=== PATIENT | male | born 1965 | race Caucasian/White ===

== ENCOUNTER 2016-07-01 19:57 | Emergency (ER) | payer OTHER ==
--- NOTE | 2016-07-01 23:22 | ED ORDER SUMMARY ---
..... Patient: JAYLON BOOKER OrderSheet [facility] VisitID: [id number] [place] [address] 51y, M Registration Date/Time: 07/01/2016 ORDER SHEET Weight: 97.5 kg (stated) Allergies: No Known Drug Allergy GENERAL ORDERS: US Scrotum/Testicular Urgent (21:37 07/01/2016 Chery BLACKWELL) (Ack 21:44 TBergley) (23:22 [email or web address]) UA-Culture if indicated Urgent (22:05 07/01/2016 Chery BLACKWELL) (Ack 22:29 [email or web address]) (22:29 DBeyer R.N.) MEDICATION ORDERS: Ibuprofen PO 800 mg (NOW) (22:25 07/01/2016 Chery BLACKWELL) (22:33 DBeyer R.N.) Hydrocodone-APAP PO 5/325 mg (NOW, HIGH ALERT MEDICATION) (22:25 07/01/2016 Chery BLACKWELL) (22:33 DBeyer R.N.) Rocephin IM 1 gm (NOW) (23:18 07/01/2016 Chery BLACKWELL) (23:28 DBeyer R.N.) Zithromax PO 500 mg (NOW) (23:19 07/01/2016 Chery BLACKWELL) (23:28 DBeyer R.N.) IV FLUIDS: ORDER SHEET NOTES: [Electronically signed by Juan Jose Mcgrath R.N. (02:59 07/02/2016)] [Electronically signed by Saida España MD (21:27 07/06/2016)] [Electronically locked/signed by Juan Jose Mcgrath R.N. (02:59 07/02/2016)]
--- NOTE | 2016-07-01 23:22 | ED NURSING NOTES ---
Clinical Report - Nurses [facility] [address] [place] [address] 07/01/2016 19:59 Patient: JAYLON BOOKER TRIAGE Triage time 20:30. Acuity: LEVEL 3. Chief Complaint: TESTICULAR PAIN and SCROTAL SWELLING. 20:34. Alert. --20:35 Frank Rivera R.N. 20:29 07/01/16. BP: 142/104. HR: 108. RR: 17. O2 saturation: 99% on room air. Temp: 98.8 F. Pain level now: 02/01. --20:35 Frank Rivera R.N. Weight: 97.5 kg stated. Height/Length: 69 inches Per Patient. BMI: 31.8. --20:32 Frank Rivera R.N. Medications None. --20:32 Frank Rivera R.N. Allergies No Known Drug Allergy. --20:32 Frank Rivera R.N. Medication/allergy information source: the patient. --20:35 Frank Rivera R.N. History Arrived by private vehicle. Historian: patient. Accompanied by friend. Primary physician (None). Onset. (3 days ago). ( Patient reports slipping on the about 3 days ago then later that night he began to get left testicular pain and swelling). 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 PAST MEDICAL HX: Immunizations: up-to-date. SOCIAL HX: Current every day heavy tobacco smoker- 1 pack per day. Occasional alcohol use. No drug use. No infectious disease exposure. ABUSE ASSESSMENT: No report of abuse. FALL RISK ASSESSMENT: Fall risk assessment completed. No fall risk identified. NUTRITIONAL RISK ASSESSMENT: The nutritional risk assessment revealed no deficiencies. FUNCTIONAL ASSESSMENT: Functional assessment: no impairments noted. LEARNING NEEDS ASSESSMENT: The learning needs assessment revealed no barriers. SKIN INTEGRITY ASSESSMENT: Skin integrity risk assessment completed. No skin integrity risk identified. --20:35 Frank Rivera R.N. PROBLEMS: Back Pain. Lumbar Strain. --20:33 Frank Rivera R.N. ADDITIONAL SURGERIES: Fracture Repair. --20:33 Frank Rivera R.N. Interventions ID band on patient. To treatment room. --20:35 Frank Rivera R.N. PHYSICAL ASSESSMENT GENERAL / NEURO / PSYCH: Alert. Oriented X 4. Appears in pain. RESPIRATORY: Respirations not labored. CVS: Capillary refill less than 2 seconds. GI / : Left testicular tenderness with swelling. SKIN: Skin is warm. --20:45 Juan Jose Mcgrath R.N. NURSING PROGRESS NOTES The plan of care for this patient has been created This plan of care was discussed with the patient. Monitoring of patient in place. Patient gowned. Reassurance given. Cottage Attendant provided for the genital exam by the physician. Two patient identifiers checked. Call light placed in reach. Side rails up x 1. Bed placed in lowest position. Patient ready for evaluation- chart flagged. --20:46 Juan Jose Mcgrath R.N. Pulse oximeter placed on patient. --20:46 Juan Jose Mcgrath R.N. 21:13 07/01/16. BP: 164/97. O2 saturation: 94%. --21:13 Juan Jose Mcgrath R.N. 22:29 07/01/16. BP: 153/103. --22:29 Juan Jose Mcgrath R.N. 22:33 07/01/2016 Ibuprofen PO 800 mg given. Allergies verified and confirmed 5 rights. --22:33 Juan Jose Mcgrath R.N. 22:33 07/01/2016 Hydrocodone-APAP (Hydrocodone-Acetaminophen) PO 5/325 mg Tablets 1 tab given. Allergies verified, confirmed 5 rights and sedative warning given to the patient. --22:33 Juan Jose Mcgrath R.N. 23:28 07/01/2016 Zithromax PO 500 mg given. Allergies verified and confirmed 5 rights. --23:28 Juan Jose Mcgrath R.N. 23:28 07/01/2016 Rocephin (CefTRIAXone Sodium) IM 1 gm given. Given in the right anterior lateral thigh. Allergies verified and confirmed 5 rights. --23:28 Juan Jose Mcgrath R.N. DISPOSITION / DISCHARGE 23:37 07/01/16. BP: 127/84. HR: 101. RR: 18. O2 saturation: 98%. Temp: 98.1 F. Pain level now 11/01. --23:37 Juan Jose Mcgrath R.N. 23:37 07/01/16. BP: 127/84. HR: 101. RR: 20. O2 saturation: 98%. Temp: 97.5 F. Pain level now: 11/01. --23:46 Juan Jose Mcgrath R.N. Departure time: 2336. Condition at departure: improved. No learning barriers present. Discharge instructions provided and reviewed with the patient. Reviewed medication(s) side effects information. Prescription(s) given to the patient. Patient verbalized understanding. Written instructions provided in Korean. The patient was discharged by the physician. He was discharged home. ( pt ambulated on discharge, no sign of reaction to media marketing manager. Pt verbalized understanding of follow up care and medication admin. Pt steady on his feet). --23:47 Juan Jose Mcgrath R.N. Locked/Released at 07/02/2016 2:59 by Juan Jose Mcgrath R.N.
--- NOTE | 2016-07-01 23:22 | ED NURSING NOTES ---
Clinical Report - Nurses [facility] [address] [place] [address] 07/01/2016 19:59 Patient: JAYLON BOOKER TRIAGE Triage time 20:30. Acuity: LEVEL 3. Chief Complaint: TESTICULAR PAIN and SCROTAL SWELLING. 20:34. Alert. --20:35 Frank Rivera R.N. 20:29 07/01/16. BP: 142/104. HR: 108. RR: 17. O2 saturation: 99% on room air. Temp: 98.8 F. Pain level now: 02/01. --20:35 Frank Rivera R.N. Weight: 97.5 kg stated. Height/Length: 69 inches Per Patient. BMI: 31.8. --20:32 Frank Rivera R.N. Medications None. --20:32 Frank Rivera R.N. Allergies No Known Drug Allergy. --20:32 Frank Rivera R.N. Medication/allergy information source: the patient. --20:35 Frank Rivera R.N. History Arrived by private vehicle. Historian: patient. Accompanied by friend. Primary physician (None). Onset. (3 days ago). ( Patient reports slipping on the about 3 days ago then later that night he began to get left testicular pain and swelling). 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 PAST MEDICAL HX: Immunizations: up-to-date. SOCIAL HX: Current every day heavy tobacco smoker- 1 pack per day. Occasional alcohol use. No drug use. No infectious disease exposure. ABUSE ASSESSMENT: No report of abuse. FALL RISK ASSESSMENT: Fall risk assessment completed. No fall risk identified. NUTRITIONAL RISK ASSESSMENT: The nutritional risk assessment revealed no deficiencies. FUNCTIONAL ASSESSMENT: Functional assessment: no impairments noted. LEARNING NEEDS ASSESSMENT: The learning needs assessment revealed no barriers. SKIN INTEGRITY ASSESSMENT: Skin integrity risk assessment completed. No skin integrity risk identified. --20:35 Frank Rivera R.N. PROBLEMS: Back Pain. Lumbar Strain. --20:33 Frank Rivera R.N. ADDITIONAL SURGERIES: Fracture Repair. --20:33 Frank Rivera R.N. Interventions ID band on patient. To treatment room. --20:35 Frank Rivera R.N. PHYSICAL ASSESSMENT GENERAL / NEURO / PSYCH: Alert. Oriented X 4. Appears in pain. RESPIRATORY: Respirations not labored. CVS: Capillary refill less than 2 seconds. GI / : Left testicular tenderness with swelling. SKIN: Skin is warm. --20:45 Juan Jose Mcgrath R.N. NURSING PROGRESS NOTES The plan of care for this patient has been created This plan of care was discussed with the patient. Monitoring of patient in place. Patient gowned. Reassurance given. Child Life Specialist provided for the genital exam by the physician. Two patient identifiers checked. Call light placed in reach. Side rails up x 1. Bed placed in lowest position. Patient ready for evaluation- chart flagged. --20:46 Juan Jose Mcgrath R.N. Pulse oximeter placed on patient. --20:46 Juan Jose Mcgrath R.N. 21:13 07/01/16. BP: 164/97. O2 saturation: 94%. --21:13 Juan Jose Mcgrath R.N. 22:29 07/01/16. BP: 153/103. --22:29 Juan Jose Mcgrath R.N. 22:33 07/01/2016 Ibuprofen PO 800 mg given. Allergies verified and confirmed 5 rights. --22:33 Juan Jose Mcgrath R.N. 22:33 07/01/2016 Hydrocodone-APAP (Hydrocodone-Acetaminophen) PO 5/325 mg Tablets 1 tab given. Allergies verified, confirmed 5 rights and sedative warning given to the patient. --22:33 Juan Jose Mcgrath R.N. 23:28 07/01/2016 Zithromax PO 500 mg given. Allergies verified and confirmed 5 rights. --23:28 Juan Jose Mcgrath R.N. 23:28 07/01/2016 Rocephin (CefTRIAXone Sodium) IM 1 gm given. Given in the right anterior lateral thigh. Allergies verified and confirmed 5 rights. --23:28 Juan Jose Mcgrath R.N. DISPOSITION / DISCHARGE 23:37 07/01/16. BP: 127/84. HR: 101. RR: 18. O2 saturation: 98%. Temp: 98.1 F. Pain level now 11/01. --23:37 Juan Jose Mcgrath R.N. 23:37 07/01/16. BP: 127/84. HR: 101. RR: 20. O2 saturation: 98%. Temp: 97.5 F. Pain level now: 11/01. --23:46 Juan Jose Mcgrath R.N. Departure time: 2336. Condition at departure: improved. No learning barriers present. Discharge instructions provided and reviewed with the patient. Reviewed medication(s) side effects information. Prescription(s) given to the patient. Patient verbalized understanding. Written instructions provided in Italian. The patient was discharged by the physician. He was discharged home. ( pt ambulated on discharge, no sign of reaction to industrial paramedic. Pt verbalized understanding of follow up care and medication admin. Pt steady on his feet). --23:47 Juan Jose Mcgrath R.N. Locked/Released at 07/02/2016 2:59 by Juan Jose Mcgrath R.N.
--- NOTE | 2016-07-01 23:22 | ED ORDER SUMMARY ---
..... Patient: JAYLON BOOKER OrderSheet [facility] VisitID: [id number] [place] [address] 51y, M Registration Date/Time: 07/01/2016 ORDER SHEET Weight: 97.5 kg (stated) Allergies: No Known Drug Allergy GENERAL ORDERS: US Scrotum/Testicular Urgent (21:37 07/01/2016 Chery BLACKWELL) (Ack 21:44 TBergley) (23:22 [email or web address] [facility] Business Process Analyst) UA-Culture if indicated Urgent (22:05 07/01/2016 Chery BLACKWELL) (Ack 22:29 [email or web address] [facility] Business Process Analyst) (22:29 DBeyer R.N.) MEDICATION ORDERS: Ibuprofen PO 800 mg (NOW) (22:25 07/01/2016 Chery BLACKWELL) (22:33 DBeyer R.N.) Hydrocodone-APAP PO 5/325 mg (NOW, HIGH ALERT MEDICATION) (22:25 07/01/2016 Chery BLACKWELL) (22:33 DBeyer R.N.) Rocephin IM 1 gm (NOW) (23:18 07/01/2016 Chery BLACKWELL) (23:28 DBeyer R.N.) Zithromax PO 500 mg (NOW) (23:19 07/01/2016 Chery BLACKWELL) (23:28 DBeyer R.N.) IV FLUIDS: ORDER SHEET NOTES: [Electronically signed by Juan Jose Mcgrath R.N. (02:59 07/02/2016)] [Electronically signed by Saida España MD (21:27 07/06/2016)] [Electronically locked/signed by Juan Jose Mcgrath R.N. (02:59 07/02/2016)]
--- NOTE | 2016-07-01 23:22 | ED CLINICAL REPORT ---
Clinical Report - Physicians/Mid Levels [facility] [address] [place] [address] 07/01/2016 19:59 Patient: JAYLON BOOKER Time Seen: 21:37. Arrived- By private vehicle. Historian- patient. HISTORY OF PRESENT ILLNESS Chief Complaint: LEFT TESTICULAR PAIN. This started about 2 days ago and is still present and now worse. The problem is described as moderate. No penile discharge, discomfort with urination, urinary frequency, genital lesion or urgency of urination. No flank pain, inguinal swelling or problem with the foreskin. He has had testicular pain. Able to void. Not voiding only small amounts. Sexual history is noncontributory. He has not had an exposure to a sexually transmitted disease. (PT states that 3 days ago, he was walking and slipped. He was able to catch himself on his feet, but felt that his L testicle pinched a little between his legs. Pt states it wasn't very painful at the time, but that he noticed pain and swelling the next day.). Similar symptoms previously: Once. Recent medical care: Not recently seen/assessed. REVIEW OF SYSTEMS No fever, chills, flank pain, hematuria or abdominal pain. No vomiting, diarrhea, black stools, bloody stools or headache. No sore throat, blurred vision, chest pain, difficulty breathing or cough. No joint pain, skin rash or back pain. All systems otherwise negative, except as recorded above. PAST HISTORY Problems: Back Pain. Lumbar Strain. Additional Surgeries: Fracture Repair. Medications: None. Allergies: No Known Drug Allergy. SOCIAL HISTORY Smoker- current status unknown. Occasional alcohol use. No drug use. ADDITIONAL NOTES The nursing notes have been reviewed. PHYSICAL EXAM Vital Signs: 07/01/2016 20:29 BP: 142/104. HR: 108. RR: 17. O2 saturation: 99%. Temp: 98.8 F. Pain level now: 8/10. Have been reviewed. Appearance: Alert. Oriented X3. No acute distress. ENT: Normal external inspection. Neck: Neck supple. CVS: Heart sounds normal. Respiratory: No respiratory distress. Breath sounds normal. Abdomen: Soft and nontender. No mass. Back: Normal external inspection. No CVA tenderness. : Moderate left-sided scrotal swelling with tenderness (L testicle). No induration, erythema, fluctuance or ulceration. (PT declines penile exam, and keeps his penis covered during the exam.). Skin: Skin warm and dry. Normal skin color. No rash. Normal skin turgor. Extremities: Extremities exhibit normal ROM. No lower extremity edema. Neuro: Oriented X 3. No motor deficit. No sensory deficit. LABS, X-RAYS, AND EKG Scrotal Sonogram: Arterial flow normal bilaterally. Venous flow normal bilaterally. Left epididymis enlarged. Hydrocele present. The exam was performed by a metallurgical technician. The study was interpreted by the radiologist and discussed with the radiologist. Prior studies were not available for comparison. Laboratory Tests: UA-Culture if indicated: (GLADIS: 07/01/2016 22:16) ( MsgRcvd 07/01/2016 22:31) Final results Test Result Flag Units (Reference) URINE COLOR YELLOW URINE APPEARANCE CLEAR URINE GLUCOSE NEGATIVE (NEGATIVE) URINE BILIRUBIN NEGATIVE (NEGATIVE) URINE KETONE NEGATIVE (NEGATIVE) URINE SPECIFIC GRAVITY 1.020 (1.010-1.030) URINE PH 5.5 (5.0-8.0) URINE PROTEIN 1+ (NEGATIVE) URINE UROBILINOGEN 0.2 EU/dL (0.2-1.0) URINE NITRITE POSITIVE (NEGATIVE) URINE BLOOD 3+ (NEGATIVE) URINE LEUK ESTERASE POSITIVE (NEGATIVE) URINE RBC 1-3 rbc/hpf (0-1) URINE WBC 15-25 wbc/hpf (0-1) URINE EPITHELIAL CELLS 0-1 EPI/hpf (0-5) URINE BACTERIA MANY (4+) (NONE SEEN) URINE COMMENT CULTURE INDICATED URINE CULTURES ARE SET-UP BASED ON THE FOLLOWING CRITERIA:POSITIVE NITRITEPOSITIVE LEUKOCYTE ESTERASEGREATER THAN 10 WHITE BLOOD CELLSMODERATE (2+) OR GREATER BACTERIA . Pulse Oximetry: 07/01/2016 20:29 O2 saturation: 99%. (FIO2 - room air). Interpretation: normal. PROGRESS AND PROCEDURES Course of Care: Pt requested oral medication only, and was given doses of ibuprofen and hydrocodone. He was worked up with a UA and US, both of which were positive. He was given Rocephin and Zithromax, and sent with prescriptions for both. Patient counseled in person regarding the patient's stable condition, test results, diagnosis and need for follow-up. Concerns were addressed. Old medical records reviewed. Disposition: Discharged. Condition: stable and improved. CLINICAL IMPRESSION Acute urinary tract infection with cystitis. Left epididymitis INSTRUCTIONS Do not work (Sunday and Sunday, 07/03-). Drink plenty of fluids. Warnings: GENERAL WARNINGS: Return or contact your physician immediately if your condition worsens or changes unexpectedly, if not improving as expected, or if other problems arise. Prescription Medications: Hydrocodone/APAP 5mg / 325mg: take 1-2 orally every 4 hours as needed for pain. Dispense fifteen (15). No refill. Septra DS 800 mg / 160 mg: take 1 tablet orally every 12 hours for 7 days. No refill. Substitution is permissible. Zithromax Z-Ivan: Take according to package instructions 2 orally today, followed by 1 orally every day for the next 4 days. Total course 5 days. No refills. Substitution is permissible. Ibuprofen 800 mg tablets: take 1 tablet orally every 8 hours as needed for pain. Dispense fifteen (15). No refill. Follow-up: Follow up with your doctor in seven days if not better. Understanding of the discharge instructions verbalized by patient. (Electronically signed by Saida España MD 07/06/2016 21:27)
--- NOTE | 2016-07-02 00:28 | DIAGNOSTIC IMAGING REPORT ---
PROCEDURE: US SCROTUM/TESTICLE INDICATION: Left testicle pain x 5 days, initial encounter TECHNIQUE: Cheney scale and color Doppler sonographic images through the scrotum were obtained. COMPARISON: None. FINDINGS: RIGHT TESTICLE: Measures 4.6 x 2.4 x 2.8 cm with normal echo structure and vascularity. 2.4 mm right epididymal cyst. LEFT TESTICLE: Measures 4.3 x 3.5 x 3.5 cm with normal vascularity and echo structure. Mild enlargement of the epididymis demonstrate increased vascularity suggestive of epididymitis. There is also a moderate hydrocele. IMPRESSION: 1. Mildly enlarged left epididymis with hyperemia suggestive of epididymitis 2. Moderate left hydrocele 3. Normal bilateral testicles
--- NOTE | 2016-07-06 21:27 | ED MAR SUMMARY ---
..... Medication Administration Record [facility] [address] [place] [address] Patient: JAYLON BOOKER Visit ID: [id number] 51y, M Weight: 97.5 kg Height/Length: 69 in BMI: 31.8 ALLERGIES: No Known Drug Allergy Given 07/01/2016 Juan Jose Mcgrath R.N. Medication Administered: IBUPROFEN [PO], Dose: 800 mg PO. Medication Ordered: Ibuprofen PO 800 mg (NOW). Given 07/01/2016 Juan Jose Mcgrath R.NMimi Medication Administered: HYDROCODONE-APAP [PO] (HYDROCODONE-ACETAMINOPHEN), Dose: 1 tab 5/325 mg Tablets PO. Medication Ordered: Hydrocodone-APAP PO 5/325 mg (NOW, HIGH ALERT MEDICATION). Given :07/01/2016 Juan Jose Mcgrath R.N. Medication Administered: ROCEPHIN [IM] (CEFTRIAXONE SODIUM), Dose: 1 gm IM. Medication Ordered: Rocephin IM 1 gm (NOW). Given 07/01/2016 Juan Jose Mcgrath RMimiNMimi Medication Administered: ZITHROMAX [PO], Dose: 500 mg PO. Medication Ordered: Zithromax PO 500 mg (NOW).
--- NOTE | 2016-07-06 21:27 | ED MED RECONCILIATION SUMMARY ---
Patient: JAYLON BOOKER Medication Reconciliation Report [facility] VisitID: [id number] [place] [address] 51y, M Registration Date/Time: 07/01/2016 Weight: 97.5 kg Height/Length: 69 in. BMI: 31.8 ALLERGIES: No Known Drug Allergy The patient's Home Medications are listed below: NONE. The source(s) of the original Home Medication information: patient The following Medications were given to the patient in the Emergency Department: Ibuprofen [PO] PO 800 mg, administered: 07/01/2016 10:33:00 PM Hydrocodone-APAP [PO] PO 1 tab, administered: 07/01/2016 10:33:00 PM Zithromax [PO] PO 500 mg, administered: 07/01/2016 11:28:00 PM Rocephin [IM] IM 1 gm, administered: 07/01/2016 11:28:00 PM The following Medications were prescribed to the patient: Hydrocodone/APAP 5mg / 325mg: take 1-2 orally every 4 hours as needed for pain. Dispense fifteen (15). No refill. -- Saida España MD Septra DS 800 mg / 160 mg: take 1 tablet orally every 12 hours for 7 days. No refill. Substitution is permissible. -- Saida España MD Zithromax Z-Ivan: Take according to package instructions 2 orally today, followed by 1 orally every day for the next 4 days. Total course 5 days. No refills. Substitution is permissible. -- Saida España MD Ibuprofen 800 mg tablets: take 1 tablet orally every 8 hours as needed for pain. Dispense fifteen (15). No refill. -- Saida España MD
--- NOTE | 2016-07-06 21:27 | ED MAR SUMMARY ---
..... Medication Administration Record [facility] [address] [place] [address] Patient: JAYLON BOOKER Visit ID: [id number] 51y, M Weight: 97.5 kg Height/Length: 69 in BMI: 31.8 ALLERGIES: No Known Drug Allergy Given 07/01/2016 Juan Jose Mcgrath R.N. Medication Administered: IBUPROFEN [PO], Dose: 800 mg PO. Medication Ordered: Ibuprofen PO 800 mg (NOW). Given 07/01/2016 Juan Jose Mcgrath R.NMimi Medication Administered: HYDROCODONE-APAP [PO] (HYDROCODONE-ACETAMINOPHEN), Dose: 1 tab 5/325 mg Tablets PO. Medication Ordered: Hydrocodone-APAP PO 5/325 mg (NOW, HIGH ALERT MEDICATION). Given :07/01/2016 Juan Jose Mcgrath R.N. Medication Administered: ROCEPHIN [IM] (CEFTRIAXONE SODIUM), Dose: 1 gm IM. Medication Ordered: Rocephin IM 1 gm (NOW). Given 07/01/2016 Juan Jose Mcgrath RMimiNMimi Medication Administered: ZITHROMAX [PO], Dose: 500 mg PO. Medication Ordered: Zithromax PO 500 mg (NOW).
--- NOTE | 2016-07-06 21:27 | ED DISCHARGE INSTRUCTIONS ---
Patient: JAYLON BOOKER General Instructions [facility] VisitID: [id number] [place] [address] 51y, M Registration Date/Time: 07/01/2016 Acute urinary tract infection with cystitis. Left epididymitis INSTRUCTIONS Do not work (Sunday and Sunday, 07/03-). Drink plenty of fluids. Warnings: GENERAL WARNINGS: Return or contact your physician immediately if your condition worsens or changes unexpectedly, if not improving as expected, or if other problems arise. Prescription Medications: Hydrocodone/APAP 5mg / 325mg: take 1-2 orally every 4 hours as needed for pain. Dispense fifteen (15). No refill. Septra DS 800 mg / 160 mg: take 1 tablet orally every 12 hours for 7 days. No refill. Substitution is permissible. Zithromax Z-Ivan: Take according to package instructions 2 orally today, followed by 1 orally every day for the next 4 days. Total course 5 days. No refills. Substitution is permissible. Ibuprofen 800 mg tablets: take 1 tablet orally every 8 hours as needed for pain. Dispense fifteen (15). No refill. Follow-up: Follow up with your doctor in seven days if not better. Understanding of the discharge instructions verbalized by patient. ADDITIONAL INFORMATION Bladder Infection,Male (Adult) A bladder infection ("cystitis" or "UTI") usually causes a constant urge to urinate, and a burning when passing urine. Urine may be cloudy, smelly or dark. There may be also be pain in the lower abdomen. Cystitis in males is not common. It may be caused by a partial blockage in the urinary system that keeps the bladder from emptying completely. This is most often related to an enlarged prostate gland. Home Care: Drink lots of fluids (at least 6-8 glasses a day). This will flush the bacteria out of your bladder. Avoid sexual intercourse until your symptoms are gone. Avoid caffeine, alcohol, and spicy foods. They could irritate the bladder. A bladder infection is treated with antibiotics. You may also be given Pyridium (generic - phenazopyridine) to reduce burning with urination. This will cause urine to become a bright orange color, which can stain clothing. Follow Up with your doctor or this facility if ALL symptoms have not cleared within five days. It is important to keep your follow up appointment to discuss with your doctor the need for further tests of the urinary tract. Get Prompt Medical Attention if any of the following occur: Fever of 100.4F (38C) or higher, or as directed by your healthcare provider No improvement by the third day of treatment Increasing back or abdominal pain Repeated vomiting; unable to keep medicine down Weakness, dizziness or fainting Epididymitis The pain and swelling in your scrotum are due to an inflammation of the epididymis. This is a small sac next to the testicle that stores sperm. It is usually due to an infection. In sexually active men, it is often due to a sexually transmitted disease (STD) such as Chlamydia or Gonorrhea. In boys and older men who are not sexually active, it is due to bacteria from the bladder or prostate gland (not an STD infection). Symptoms may begin with lower abdominal or low back pain and spreads down into the scrotum. Usually only one side is affected. The testicle and scrotum swell and become very painful. There may be fever and burning when passing urine. Sometimes there is a discharge from the penis. Treatment is with antibiotics, anti-inflammatory and pain medicines. There should be improvement over the first few days of treatment, but it will take several weeks for all the swelling and discomfort to go away. If an STD is suspected as a cause, sexual partners must also be treated. Home Care: 1) Support the scrotum. When lying down, place a rolled towel under the scrotum. When walking, use an athletic supporter or two pairs of Jockey-style underwear. 2) To relieve pain, apply ice packs to the inflamed area (ice cubes in a plastic bag wrapped in a towel). 3) You may use acetaminophen (Tylenol) or ibuprofen (Motrin, Advil) to control pain, unless another medicine was prescribed. [ NOTE : If you have chronic liver or kidney disease or ever had a stomach ulcer or GI bleeding, talk with your doctor before using these medicines.] 4) Rest in bed until the fever, pain and swelling decrease. It may take several weeks for all of the swelling to go away. Avoid coffee, tea, carbonated beverages and alcohol, which could worsen your symptoms. 5) Avoid constipation (which causes straining and therefore increased pain) by eating natural laxatives such as prunes, fresh fruits and whole-grain cereals. If necessary, use a mild [id number] laxative (Milk of Magnesia) for constipation. Mineral oil can be used to keep the stools soft. 6) Do not have sex until you have finished all treatment and all symptoms have cleared. 7) Take all medicine as directed. Do not miss any doses and do not stop early even if you feel better. Follow Up with your doctor, a urologist, or as advised by our staff to be sure you are responding properly to treatment. If a culture was taken, you may call for the result in 2-3 days. A culture test can ensure that you are on the correct antibiotic. Get Prompt Medical Attention if any of the following occur: -- Fever over 100.4 F (38.0 C) after three days of treatment -- Increasing pain or swelling of the testicle after starting treatment -- Increasing pressure or pain in your bladder -- Unable to pass urine for eight hours You have been given the following additional information: Bladder Infection, Male (Adult) Epididymitis Do not work (Sunday and Sunday, 07/03-). (Electronically signed by Saida España MD 07/06/2016 21:27)
--- NOTE | 2016-07-06 21:27 | ED MED RECONCILIATION SUMMARY ---
Patient: JAYLON BOOKER Medication Reconciliation Report [facility] VisitID: [id number] [place] [address] 51y, M Registration Date/Time: 07/01/2016 Weight: 97.5 kg Height/Length: 69 in. BMI: 31.8 ALLERGIES: No Known Drug Allergy The patient's Home Medications are listed below: NONE. The source(s) of the original Home Medication information: patient The following Medications were given to the patient in the Emergency Department: Ibuprofen [PO] PO 800 mg, administered: 07/01/2016 10:33:00 PM Hydrocodone-APAP [PO] PO 1 tab, administered: 07/01/2016 10:33:00 PM Zithromax [PO] PO 500 mg, administered: 07/01/2016 11:28:00 PM Rocephin [IM] IM 1 gm, administered: 07/01/2016 11:28:00 PM The following Medications were prescribed to the patient: Hydrocodone/APAP 5mg / 325mg: take 1-2 orally every 4 hours as needed for pain. Dispense fifteen (15). No refill. -- Saida España MD Septra DS 800 mg / 160 mg: take 1 tablet orally every 12 hours for 7 days. No refill. Substitution is permissible. -- Saida España MD Zithromax Z-Ivan: Take according to package instructions 2 orally today, followed by 1 orally every day for the next 4 days. Total course 5 days. No refills. Substitution is permissible. -- Saida España MD Ibuprofen 800 mg tablets: take 1 tablet orally every 8 hours as needed for pain. Dispense fifteen (15). No refill. -- Saida España MD
== END 2016-07-01 23:37 | disposition home or self-care (01) ==
LOC: ED SRH 19:57
DX: N30.90 Cystitis, unspecified without hematuria (principal); N45.1 Epididymitis
CPT/HCPCS: 90004; 90148; 90469